=== PATIENT | female | born 1960 | race Native Hawaiian/Other Pacific Islander ===

== ENCOUNTER 2020-06-14 15:44 | Outpatient (CLI) | payer BC | END 2020-06-14 21:05 | disposition home or self-care (01) | LOC: RAD 15:44 | PROVIDERS: ATTEND Nurse Practitioner Family | DX: J20.9 Acute bronchitis, unspecified (principal) ==

== ENCOUNTER 2020-10-10 14:58 | Outpatient (CLI) | payer BC | END 2020-10-10 19:59 | disposition home or self-care (01) | LOC: US 14:58 | PROVIDERS: ATTEND Nurse Practitioner Family | DX: R60.0 Localized edema (principal) ==

== ENCOUNTER 2021-03-18 14:22 | Outpatient (CLI) | payer BC | END 2021-03-18 19:16 | disposition home or self-care (01) | LOC: RAD 14:22 | PROVIDERS: ATTEND Nurse Practitioner Family | DX: M54.17 Radiculopathy, lumbosacral region (principal); M25.561 Pain in right knee ==

== ENCOUNTER 2022-12-15 14:14 | Outpatient (CLI) | payer BC | END 2022-12-15 20:44 | disposition home or self-care (01) | LOC: RESP 14:14 | PROVIDERS: ATTEND Nurse Practitioner Family | DX: I10 Essential (primary) hypertension (principal) ==

== ENCOUNTER 2022-12-19 08:04 | Outpatient (CLI) | payer BC ==
[~2022-12-19] VITALS: Ht 167.6 cm; Wt 103.4 kg
== END 2022-12-19 19:21 | disposition home or self-care (01) ==
LOC: NM 08:04
PROVIDERS: ATTEND Nurse Practitioner Family
DX: I10 Essential (primary) hypertension (principal); Z79.899 Other long term (current) drug therapy
CPT/HCPCS: A9500; J2785